=== PATIENT | male | born 1975 | race Caucasian/White ===

== ENCOUNTER 2023-09-17 14:32 | Emergency (ER) | payer SELFPAY ==
[2023-09-17] VITALS (24 sets, daily range): BP systolic 113–155; BP diastolic 90–125; PULSE 71–108; RESP 12–26; TEMP 37.1; O2SAT 93–100
--- NOTE | ~2023-09-17 | CT_ITS ---
EXAMINATION: CTA chest PE protocol DATE: 09/17/2023 15:46 INDICATION: Midsternal chest pain radiating to the left arm. TECHNIQUE: Computed tomography angiography (CTA) of the chest was performed with 100 mL Omnipaque-350 intravenous contrast timed to evaluate the pulmonary arteries. Coronal maximum intensity projection 3D-reconstructions were created by the technologist. Automated exposure control and iterative reconst ruction technique were employed. The dose-length product was 691.12 mGy-cm. COMPARISON: Chest 2 views 09/17/2023 FINDINGS: The lungs demonstrate mild atelectasis. No pleural effusion. The heart size is normal. No p ericardial effusion. There is a left chest wall pacer with leads in the right atrium and right ventri nish. There is no pulmonary embolus. There are changes of cholecystectomy. There is mild thoracic spon dylosis. IMPRESSION: 1. No pulmonary embolus. Reviewed, dictated and finalized at location E. IMPRESSION: 1. No pulmonary embolus.
--- NOTE | ~2023-09-17 | XR_ITS ---
EXAMINATION: XR chest 2V DATE: 09/17/2023 14:57 INDICATION: Chest pain. TECHNIQUE: Frontal and lateral views of the chest were obtained. COMPARISON: None. FINDINGS: There is no pneumonia, pleural effusion, or pneumothorax. The heart size is normal. There i s a left chest wall pacer with leads in the right atrium and right ventricle. Widening of right acrom ioclavicular joint may be from distal clavicle resection or old trauma. There are surgical clips in t he abdomen. IMPRESSION: 1. No acute cardiopulmonary disease. Reviewed, dictated and finalized at location E.
--- NOTE | 2023-09-17 14:36 | ECG_ITS ---
Test Date: 2023-09-17 14:39:18 Measurements Intervals [place] Rate: 97 P: 34 MD: 165 QRS: 22 QRSD: 88 T: 26 QT: 310 QTc: 395 Interpretive Statements SINUS RHYTHM No previous ECG available for comparison Electronically Signed On 09-17-2023 16:19:25 CDT by Koko Sidhu M.D.
--- NOTE | 2023-09-17 14:47 | ED.CHESTPAIN ---
HPI - Chest Pain General Chief Complaint: Chest Pain Stated Complaint: CP Time Seen by Provider: 09/17/23 14:34 History of Present Illness HPI narrative: 47-year-old male presenting to the emergency department for evaluation for chest pain. Patient reports he does have a significant cardiac history. Patient reports he had an episode of cardiac arrest approximately 6 years ago, patient states he has no stents in place but patient does have a pacemaker. Patient reports he was driving in his truck today when he had onset chest pain that radiated to his left chest. Related Data Allergies Allergy/AdvReac Type Severity Reaction Status Date / Time No Known Allergies Allergy Verified 09/17/23 15:03 Review of Systems Review of Systems: All systems reviewed & are unremarkable except as noted in HPI and below Exam Narrative: APPEARANCE: Uncomfortable appearing HEAD: normocephalic, atraumatic. EYES: PERRLA/EOMI, conjunctivae clear. NOSE: Normal no drainage EARS:TMS clear with good light reflex. THROAT: Pharynx clear, no exudate. NECK: Supple. No adenopathy, no masses. RESPIRATORY: Airway patent, respirations nonlabored. Clear to auscultation bilaterally, no rales, rhonchi, wheezing. CARDIOVASCULAR: Regular rate and rhythm without murmurs rubs or gallops. ABDOMINAL: Soft, nontender, nondistended, normal bowel sounds MUSCULOSKELETAL: Moves all extremities. Strength/ROM intact, No edema, No calf tenderness. NEURO: Alert. Cranial nerves II through XII intact. Grossly intact SKIN: Warm, dry. Normal Color PSYCHIATRIC: Normal affect/mood. Course Vital Signs Vital signs: Vital Signs Temperature 98.7 F 09/17/23 14:34 Pulse Rate 105 H 09/17/23 14:34 Respiratory Rate 21 H 09/17/23 14:34 Blood Pressure 147/101 H 09/17/23 14:34 Pulse Oximetry 97 09/17/23 14:34 Oxygen Delivery Room Air 09/17/23 14:34 Temperature 98.7 F 09/17/23 14:34 Pulse Rate 71 09/17/23 18:00 Respiratory Rate 19 09/17/23 18:00 Blood Pressure 138/112 H 09/17/23 18:00 Pulse Oximetry 96 09/17/23 18:00 Oxygen Delivery Room Air 09/17/23 18:49 MDM - Chest Pain MDM Narrative Medical decision making narrative: 47-year-old male presents emergency department for evaluation for chest pain that radiates into his left arm. Patient is afebrile with no leukocytosis and a stable hemoglobin. Patient had negative serial troponins. Patient's D-dimer was elevated but his CTA showed no evidence of pulmonary embolism, pericardial effusion or pleural effusion. Patient had no significant electrolyte abnormalities. Patient's lipase was negative. Patient was negative for influenza RSV and for COVID. Patient did feel improved with treatment. Patient was encouraged of close follow-up with primary care physician for additional outpatient cardiac testing. All questions concerns were addressed patient was well-appearing at time of discharge. Differential Diagnosis Differential diagnosis: Likely pneumothorax, unstable angina pectoris, atypical chest pain, st elevation myocardial infarction, costochondritis and chest pain Lab Data Attestation: I reviewed the patient's lab results. 09/17/23 14:43 09/17/23 14:42 Labs: Lab Results 09/17/23 09/17/23 09/17/23 Range/Units 14:42 14:43 15:05 WBC 8.0 (4.5-10.0) K/mm3 RBC 5.34 (4.6-6.20) M/mm3 Hgb 16.4 (14.0-18.0) g/dL Hct 47.9 (42.0-52.0) % MCV 89.7 (80-100) fl MCH 30.7 (26-34) pg MCHC 34.2 (32-36) g/dl RDW 13.7 (11.5-14.5) % Plt Count 187 (150-375) k/mm3 MPV 10.3 (7.4-10.4) fl Immature Gran % (Auto) 0.5 (0-0.5) % Neut % (Auto) 62.6 (45.5-73.1) % Lymph % (Auto) 27.6 (18.3-44.2) % Cameron % (Auto) 6.0 (2.6-8.5) % Eos % (Auto) 2.4 (0-4.4) % Baso % (Auto) 0.9 (0.2-1.2) % Lymph # (Auto) 2.20 (0.9-3.2) K/mm3 Cameron # (Auto) 0.5 (0.1-0.6) K/mm3 Eos # (Auto) 0.2 (0-0.3) K/mm3 Baso # (
[2023-09-17 14:49] LABS: Basophils Absolute Auto 0.1 K/mm3 (0.0-0.1); Basophils Percent Auto 0.9 % (0.2-1.2); Eosinophils Absolute Auto 0.2 K/mm3 (0-0.3); Eosinophils Percent Auto 2.4 % (0-4.4); Hematocrit 47.9 % (42.0-52.0); Hemoglobin 16.4 g/dL (14.0-18.0); Immature Granulocyte Absolute 0.04 K/mm3 (0.00-0.031); Immature Granulocyte Percent A 0.5 % (0-0.5); Lymphocytes Percent Auto 27.6 % (18.3-44.2); Mean Corpuscular HGB Conc 34.2 g/dl (32-36); Mean Corpuscular Hemoglobin 30.7 pg (26-34); Mean Corpuscular Volume 89.7 fl (80-100); Mean Platelet Volume 10.3 fl (7.4-10.4); Monocytes Absolute Auto 0.5 K/mm3 (0.1-0.6); Neutrophils Percent Auto 62.6 % (45.5-73.1); Platelet Count Result 187 k/mm3 (150-375); Red Blood Count 5.34 M/mm3 (4.6-6.20); Red Cell Distribution Width 13.7 % (11.5-14.5)
[2023-09-17 14:59] LABS: INR 0.9; Prothrombin Time 12.9 Seconds (11.1-14.7)
[2023-09-17 15:03] LABS: Alanine Aminotransferase 42 U/L (6-50); Albumin Level 4.2 g/dL (3.5-5.1); Alkaline Phosphatase 77 U/L (38-126); Anion Gap 6 mmol/L (4-12); Aspartate Amino Transferase 50 U/L (17-59); Bilirubin,Total 0.6 mg/dL (0.2-1.3); Blood Urea Nitrogen 12 mg/dL (9-20); Calcium 9.4 mg/dL (8.4-10.2); Carbon Dioxide 24 mmol/L (22-30); Chloride 111 mmol/L (98-107); Estimated Glomerular Filt Rate > 60; Glucose 110 mg/dL (65-110); Lipase 201 U/L (23-300); Potassium 4.1 mmol/L (3.4-5.0); Sodium 141 mmol/L (137-145)
[2023-09-17] MEDS: NITROGLYCERIN SL 0.4 MG TABLET SUBLINGUAL (15:04)
[2023-09-17] MEDS: HYDROmorphone HCL INJ (*CRX) 1 MG/ML SYR IV PUSH (15:06)
[2023-09-17 15:14] LABS: Troponin I < 0.012 ng/mL (0.000-0.034)
[2023-09-17 15:27] LABS: D Dimer 3.32 ug/mL (<0.48)
--- NOTE | 2023-09-17 15:32 | PC.NURSE ---
2nd nitro given at 1532. Pt states relief with first one but pain returned. Pt states pain is a 8
[2023-09-17 17:13] LABS: Influenza A QL RT-PCR Negative (Negative); Influenza B QL RT-PCR Negative (Negative); RSV RNA, RT-PCR Negative (Negative); SARS-CoV-2 RNA PCR Negative (Negative)
--- NOTE | 2023-09-17 17:25 | ECG_ITS ---
Test Date: 2023-09-17 17:30:16 Measurements Intervals [place] Rate: 66 P: 37 SC: 180 QRS: 35 QRSD: 92 T: 30 QT: 358 QTc: 378 Interpretive Statements SINUS RHYTHM WITH SINUS ARRHYTHMIA NORMAL ECG Compared to ECG 09/17/2023 14:39:18 No significant changes Electronically Signed On 09-18-2023 06:14:37 CDT by Kush Munguia D.O.
[2023-09-17 18:02] LABS: Troponin I < 0.012 ng/mL (0.000-0.034)
== END 2023-09-17 18:52 | disposition home or self-care (01) ==
PROVIDERS: Emergency Provider Emergency Medicine; Referring Provider Emergency Medicine
DX: R07.9 Chest pain, unspecified (principal); Z20.822 Contact with and (suspected) exposure to COVID-19
CPT/HCPCS: 36415; 71046; 71275; 80053; 83690; 84484; 85025; 85380; 85610; 85730; 87637; 93005; 96374; 99284; A9270; J1170; Q9967